=== PATIENT | female | born 1935 | race Asian ===

== ENCOUNTER → 2016-09-18 | Outpatient (CLI) | payer MEDICARE, OTHER ==
[2016-09-18 12:26] LABS: CALCIUM, TOTAL 8.8 mg/dL (8.8-10.5); CREATININE 1.52 mg/dL (0.60-1.30); POTASSIUM 4.5 mmol/L (3.5-5.1)
== END | disposition home or self-care (01) ==
LOC: LABPV 09:49
PROVIDERS: ATTEND Internal Medicine
DX: I12.9 Hypertensive chronic kidney disease with stage 1 through stage 4 chronic kidney disease, or unspecified chronic kidney disease (principal); N18.3 Chronic kidney disease, stage 3 (moderate); E11.21 Type 2 diabetes mellitus with diabetic nephropathy; E11.22 Type 2 diabetes mellitus with diabetic chronic kidney disease; E78.5 Hyperlipidemia, unspecified

== ENCOUNTER → 2017-08-26 | Outpatient (CLI) | payer MEDICARE, OTHER | END | disposition home or self-care (01) | LOC: RADPV 12:14 | PROVIDERS: ATTEND Internal Medicine | DX: R07.9 Chest pain, unspecified (principal); I11.0 Hypertensive heart disease with heart failure; I50.30 Unspecified diastolic (congestive) heart failure | CPT/HCPCS: 71046 ==

== ENCOUNTER → 2018-03-22 | Outpatient (CLI) | payer MEDICARE, OTHER ==
[2018-03-22 14:30] LABS: HEMATOCRIT 34.2 % (36-46); HEMOGLOBIN 11.5 g/dL (12.0-16.0)
[2018-03-22 14:50] LABS: BILIRUBIN,URINE NEGATIVE (NEGATIVE); GLUCOSE, URINE (UA) 100 mg/dL (NEGATIVE); KETONES,URINE NEGATIVE (NEGATIVE); LEUKOCYTE ESTERASE ,URINE NEGATIVE (NEGATIVE); NITRATE,URINE NEGATIVE (NEGATIVE); OCCULT BLOOD,URINE NEGATIVE (NEGATIVE); PH,URINE 5.5 (5.0-8.0); PROTEIN,URINE SEE CONFIRM (NEGATIVE); UROBILINOGEN,URINE 0.2 mg/dL (<=1.0)
[2018-03-22 14:52] LABS: CALCIUM, TOTAL 9.6 mg/dL (8.8-10.5); CREATININE 2.37 mg/dL (0.60-1.30); PHOSPHORUS 4.3 mg/dL (2.5-4.9); VITAMIN B12 LEVEL 691 pg/mL (211-911)
[2018-03-22 14:53] LABS: FOLATE SERUM > 24.0 ng/mL (5.4-)
[2018-03-22 14:55] LABS: APPEARANCE,URINE HAZY (CLEAR)
[2018-03-22 14:56] LABS: BACTERIA,URINE Few /HPF (None Seen); RBC,URINE None Seen /HPF (0-2); SULFOSALICYLIC ACID,URINE 4+ (Negative)
[2018-03-22 14:57] LABS: SQUAMOUS EPITHELIAL CELL,UR Few /LPF (None Seen)
[2018-03-22 18:18] LABS: % IRON SATURATION 13.1 % (22-44)
[2018-03-22 20:57] LABS: CREATININE,SERUM FOR CRCL 2.37 mg/dL (0.60-1.30)
[2018-03-22 21:01] LABS: CREATININE,URINE 30.8 mg/dL (30.0-125.0)
[2018-03-23 11:38] LABS: ALPHA-1 (IFE & PEP) 0.4 g/dL (0.0-0.4); GAMMA GLOBULINS (IFE & ELP) 1.6 g/dL (0.4-1.8); IGM (IMMUNOFIXATION) 80 mg/dL (26-217)
== END | disposition home or self-care (01) ==
LOC: LABPV 11:43
PROVIDERS: ATTEND Internal Medicine Nephrology
DX: I12.9 Hypertensive chronic kidney disease with stage 1 through stage 4 chronic kidney disease, or unspecified chronic kidney disease (principal); E11.22 Type 2 diabetes mellitus with diabetic chronic kidney disease; N18.4 Chronic kidney disease, stage 4 (severe); E78.5 Hyperlipidemia, unspecified; R82.99 Other abnormal findings in urine
CPT/HCPCS: 81050; 82575; 82607; 82728; 82746; 82784; 83540; 83550; 83970; 84100; 84155; 84156; 84165; 84166; 84300; 84466; 85014; 85018; 86038; 86160; 86256; 86334; 86335; 87086

== ENCOUNTER → 2018-05-10 | Outpatient (CLI) | payer MEDICARE, OTHER ==
[2018-05-10 12:52] LABS: APPEARANCE,URINE CLEAR (CLEAR); BILIRUBIN,URINE NEGATIVE (NEGATIVE); GLUCOSE, URINE (UA) NEGATIVE (NEGATIVE); KETONES,URINE NEGATIVE (NEGATIVE); LEUKOCYTE ESTERASE ,URINE NEGATIVE (NEGATIVE); NITRATE,URINE NEGATIVE (NEGATIVE); OCCULT BLOOD,URINE TRACE (NEGATIVE); PH,URINE 5.5 (5.0-8.0); PROTEIN,URINE SEE CONFIRM (NEGATIVE); UROBILINOGEN,URINE 0.2 mg/dL (<=1.0)
[2018-05-10 12:56] LABS: ALANINE AMINOTRANSFERASE 24 U/L (12-78); ALBUMIN 3.2 g/dL (3.4-5.0); ALKALINE PHOSPHATASE 72 U/L (46-116); ANION GAP 8 mmol/L (8-16); ASPARTATE AMINOTRANSFERASE 35 U/L (15-37); BILIRUBIN,TOTAL 0.3 mg/dL (0.1-1.0); CALCIUM, TOTAL 9.2 mg/dL (8.8-10.5); CARBON DIOXIDE 24 mmol/L (22-29); CHLORIDE 102 mmol/L (98-107); CHOL/HDL RATIO 6.6 (3.9-5.7); CHOLESTEROL 232 mg/dL (131-200); CREATININE 2.65 mg/dL (0.60-1.30); GLOMERULAR FILTR. RATE CALC 17 mL/min (>60); GLUCOSE,RANDOM 109 mg/dL (70-110); HDL CHOLESTEROL 35 mg/dL (40-60); POTASSIUM 5.3 mmol/L (3.5-5.1); SODIUM SERUM 134 mmol/L (136-145); TOTAL PROTEIN, SERUM 8.8 g/dL (6.4-8.2); TRIGLYCERIDES 410 mg/dL (15-150); UREA NITROGEN, BLOOD 34 mg/dL (7-18)
[2018-05-10 13:21] LABS: COARSE GRANULAR CASTS,URINE 0-2 /LPF (None Seen); FINE GRANULAR CASTS,URINE 0-2 /LPF (None Seen); RBC,URINE 0-2 /HPF (0-2); SULFOSALICYLIC ACID,URINE 3+ (Negative); WBC,URINE 0-2 /HPF (0-5)
[2018-05-10 13:22] LABS: BACTERIA,URINE None Seen /HPF (None Seen)
== END | disposition home or self-care (01) ==
LOC: LABPV 10:41
PROVIDERS: ATTEND Internal Medicine Nephrology
DX: I12.9 Hypertensive chronic kidney disease with stage 1 through stage 4 chronic kidney disease, or unspecified chronic kidney disease (principal); E11.22 Type 2 diabetes mellitus with diabetic chronic kidney disease; N18.4 Chronic kidney disease, stage 4 (severe); E78.5 Hyperlipidemia, unspecified

== ENCOUNTER → 2018-06-28 | Outpatient (CLI) | payer MEDICARE, OTHER ==
[2018-06-28 16:06] LABS: HEMATOCRIT 31.8 % (36-46); HEMOGLOBIN 10.6 g/dL (12.0-16.0)
[2018-06-28 16:12] LABS: CALCIUM, TOTAL 8.9 mg/dL (8.8-10.5); CREATININE 2.95 mg/dL (0.60-1.30); POTASSIUM 4.9 mmol/L (3.5-5.1)
[2018-06-28 16:16] LABS: CREATININE,SERUM FOR CRCL 2.95 mg/dL (0.60-1.30)
[2018-06-28 16:17] LABS: CREATININE,URINE 33.2 mg/dL (30.0-125.0)
[2018-06-29 13:48] LABS: ALPHA-1 (IFE & PEP) 0.3 g/dL (0.0-0.4); GAMMA GLOBULINS (IFE & ELP) 1.4 g/dL (0.4-1.8); IGM (IMMUNOFIXATION) 74 mg/dL (26-217)
[2018-06-30 00:06] LABS: FREE KAPPA LIGHT CHAINS,S 91.4 mg/L (3.3-19.4); FREE KAPPA/LAMBDA LT CHN RATIO 0.83 (0.26-1.65)
== END | disposition home or self-care (01) ==
LOC: LABPV 11:53
PROVIDERS: ATTEND Internal Medicine Nephrology
DX: N18.4 Chronic kidney disease, stage 4 (severe) (principal); D63.1 Anemia in chronic kidney disease; R80.8 Other proteinuria
CPT/HCPCS: 81050; 82575; 82784; 83883; 84155; 84156; 84165; 84300; 85014; 85018; 86334